=== PATIENT | female | born 1960 | race Caucasian/White ===

== ENCOUNTER → 2016-10-11 | Outpatient (CLI) | payer OTHER ==
[~2016-10-11] MED LIST: B-COCAP9 PO; BUTA1CAP10 PO; CHOL50006 PO; DHEA25CA PO; FLUD.1 PO; FOLI400T PO; HYDR10TA65 PO; HYDR5TAB64 PO; IMIT50TA PO; LEVO.15 PO; MULTTAB67 PO; REGL10TA5 PO; SELE100T PO; SYNT112T PO; VITA10002 PO
[2016-10-11 13:30] LABS: ALT (GPT) 25 U/L (10-53); ANION GAP 10 MEQ/L (5-15); AST (GOT) 21 U/L (15-37); BICARBONATE 25.5 MEQ/L (21.0-32.0); BLOOD UREA NITROGEN 18 MG/DL (7-18); CHLORIDE 98 MEQ/L (98-107); GLOMERULAR FILTRATION RATE 54 ML/MIN (>89); POTASSIUM 4.2 MEQ/L (3.5-5.1); SODIUM (NA) 133 MEQ/L (136-145)
[2016-10-11 13:40] LABS: ALKALINE PHOSPHATASE 96 U/L (45-117); FREE T4 1.33 NG/DL (0.76-1.46); TOTAL BILIRUBIN ADULT 0.4 MG/DL (0.2-1.0)
== END ==
LOC: PLAB 11:28
PROVIDERS: ATTEND Internal Medicine Endocrinology, Diabetes & Metabolism
DX: E03.9 Hypothyroidism, unspecified (principal); E55.9 Vitamin D deficiency, unspecified; E27.1 Primary adrenocortical insufficiency
CPT/HCPCS: 80053; 82024; 82306; 84439; 84443

== ENCOUNTER 2016-10-23 13:52 | Emergency (ER) | payer OTHER ==
[~2016-10-23] VITALS: Ht 167.6 cm; Wt 80.0 kg
[~2016-10-23 13:52] MED LIST changes: -B-COCAP9 PO; -BUTA1CAP10 PO; -CHOL50006 PO; -DHEA25CA PO; -FOLI400T PO; -HYDR5TAB64 PO; -IMIT50TA PO; -MULTTAB67 PO; -REGL10TA5 PO; -SELE100T PO; -SYNT112T PO; -VITA10002 PO
[2016-10-23 13:55] VITALS: BP 150/87; PULSE 98; RESP 16; TEMP 97.8; O2SAT 98
[2016-10-23] MEDS ORDERED: HYDR10TA65 PO (14:13)
[2016-10-23] MEDS ORDERED: SYNT112T PO (14:13)
[2016-10-23] MEDS ORDERED: FLUD.1 PO (14:13)
[2016-10-23] MEDS ORDERED: HYDR5TAB64 PO (14:13)
[2016-10-23] MEDS ORDERED: SODIUM CHLOR 0.9% 1000 ML INJ 1,000 ML IV SCH (14:43)
--- NOTE | 2016-10-23 14:44 | PD ---
HPI Chief Complaint: GI Complaint Time Seen by Provider: 14:44 Travel History International Travel<30 days: No Contact w/Intl Traveler<30days: No Traveled to known affect area: No History of Present Illness HPI 56-year-old female with a history of Deandra's disease, pernicious anemia and Paul's hypothyroidism presents to the emergency department for evaluation of nausea and left lower quadrant abdominal pain. The patient states that she has had nausea for the past 10 days without vomiting. States that she thought her symptoms may be diverticulitis that she has a history of this in the past and 5 days ago she was seen at an urgent care and given a prescription for Flagyl which she has been taking. States that over the past 4 days she has had some intermittent left lower quadrant tenderness cramping pains. States that her nausea has persisted and she is unsure if she is having this nausea from diverticulitis or from her [place]'s. She denies any fever, chills, vomiting, diarrhea, constipation, bloody stool, chest pain, shortness of breath, cough or cold symptoms. Denies any prior abdominal surgeries. No other complaints. PFSH Past Medical History Arthritis: Yes Asthma: Yes (EXERCISE INDUCED) Autoimmune Disease: Yes (HASHIMOTOS, DEANDRA'S, pernicious anemia) Cancer: No Cardiovascular Problems: Yes High Cholesterol: No Diminished Hearing: No Diverticulitis: Yes Endocrine: No Genitourinary: No Hypertension: Yes Implanted Vascular Access Dvce: No Musculoskeletal: Yes Neurologic: Yes Reproductive: No Respiratory: Yes Migraines: Yes Thyroid Disease: Yes (HYPOTHYROID) Tetanus Vaccination: < 5 Years Menopausal: Yes : 5 Para: 4 Miscarriage: 1 Past Surgical History Body Medical Devices: NEUTROPENIA Oral Surgery: Yes (WISDOM TEETH) Pacemaker: No Tonsillectomy: Yes (1966) Other Surgery: Yes (1979--R.BREAST LUMPECTOMY) Social History Alcohol Use: No Tobacco Use: No Substance Use: No Allergies-Medications (Allergen,Severity, Reaction): Coded Allergies: Penicillin (Verified Allergy, Severe, HIVES, 10/23/16) Sulfa (Verified Allergy, Severe, SWELLING, 10/23/16) Reported Meds & Prescriptions Reported Meds & Active Scripts Active Reported Fludrocortisone (Fludrocortisone Acetate) 0.1 Mg Tab 0.1 Mg PO DAILY Hydrocortisone 5 Mg Tab 2.5 Mg PO DAILY Take with food to decrease GI upset Hydrocortisone 5 Mg Tab 2.5 Mg PO DAILY Take with food to decrease GI upset Hydrocortisone 10 Mg Tab 10 Mg PO DAILY Take with food to decrease GI upset Synthroid (Levothyroxine Sodium) 112 Mcg Tab 112 Mcg PO DAILY Review of Systems Except as stated in HPI: all other systems reviewed are Neg Physical Exam Narrative GENERAL: Well-nourished and well-developed pleasant female patient in no acute distress who is nontoxic appearing. SKIN: Warm and dry. HEAD: Normocephalic and atraumatic. EYES: No injection, drainage, or hyphema noted. PERRLA. EOMI. ENT: No nasal drainage noted. Oropharynx is clear. NECK: Supple and the trachea is midline. CARDIOVASCULAR: Regular rate and rhythm. RESPIRATORY: Breath sounds are equal bilaterally with no accessory muscle use, wheezing, rhonchi, or crackles. GASTROINTESTINAL: Mild left lower quadrant tenderness to palpation. Abdomen is soft and nondistended. No rebound tenderness or guarding. Negative McBurney 's point. Negative Calero's sign. MUSCULOSKELETAL: No obvious deformities, swelling, cyanosis, or ecchymosis is present throughout the upper and lower extremities. Patient has full range of motion without any signs of neurovascular compromise. NEUROLOGICAL: Awake, alert, and oriented. Normal speech and gait. Cranial nerves are grossly intact. Data Data Last Documented VS Vital Signs Date Time Temp Pulse Resp B/P Pulse Ox O2 Delivery O2 Flow Rate FiO2 10/23/16 15:36 99 10/23/16 13:55 97.8 98 16 150/87 Room Air Orders Complete Blood Count With Diff (10/23/16 14:43) Comprehensive Metabolic Panel (10/23/16 14:43) Lipase (10/23/16 14:43) Urinalysis - C+S If Indicated (10/23/16 14:43) Ct Abd/Pel W Iv Contrast(Rout) (10/23/16 14:43) Iv Access Insert/Monitor (10/23/16 14:43) Ecg Monitoring (10/23/16 14:43) Oximetry (10/23/16 14:43) Ondansetron Inj (Zofran Inj) (10/23/16 14:45) Sodium Chlor 0.9% 1000 Ml Inj (Ns 1000 M (10/23/16 14:43) Sodium Chloride 0.9% Flush (Ns Flush) (10/23/16 14:45) Iohexol 350 Inj (Omnipaque 350 Inj) (10/23/16 17:14) Labs Laboratory Tests Test 10/23/16 14:55 White Blood Count 4.9 TH/MM3 Red Blood Count 4.68 MIL/MM3 Hemoglobin 14.2 GM/DL Hematocrit 40.6 % Mean Corpuscular Volume 86.9 FL Mean Corpuscular Hemoglobin 30.3 PG Mean Corpuscular Hemoglobin 34.9 % Concent Red Cell Distribution Width 13.0 % Platelet Count 320 TH/MM3 Mean Platelet Volume 8.8 FL Neutrophils (%) (Auto) 55.4 % Lymphocytes (%) (Auto) 35.5 % Monocytes (%) (Auto) 7.7 % Eosinophils (%) (Auto) 0.7 % Basophils (%) (Auto) 0.7 % Neutrophils # (Auto) 2.7 TH/MM3 Lymphocytes # (Auto) 1.7 TH/MM3 Monocytes # (Auto) 0.4 TH/MM3 Eosinophils # (Auto) 0.0 TH/MM3 Basophils # (Auto) 0.0 TH/MM3 CBC Comment DIFF FINAL Differential Comment Urine Color YELLOW Urine Turbidity CLEAR Urine pH 5.0 Urine Specific [place] 1.007 Urine Protein NEG mg/dL Urine Glucose (UA) NEG mg/dL Urine Ketones NEG mg/dL Urine Occult Blood NEG Urine Nitrite NEG Urine Bilirubin NEG Urine Urobilinogen LESS THAN 2.0 MG/DL Urine Leukocyte Esterase NEG Urine WBC LESS THAN 1 /hpf Microscopic Urinalysis Comment CULT NOT INDICATED Sodium Level 131 MEQ/L Potassium Level 4.0 MEQ/L Chloride Level 97 MEQ/L Carbon Dioxide Level 24.3 MEQ/L Anion Gap 10 MEQ/L Blood Urea Nitrogen 13 MG/DL Creatinine 0.99 MG/DL Estimat Glomerular Filtration 58 ML/MIN Rate Random Glucose 106 MG/DL Calcium Level 9.7 MG/DL Total Bilirubin 0.5 MG/DL Aspartate Amino Transf 47 U/L (AST/SGOT) Alanine Aminotransferase 37 U/L (ALT/SGPT) Alkaline Phosphatase 82 U/L Total Protein 7.5 GM/DL Albumin 4.3 GM/DL Lipase 156 U/L [facility] Medical Decision Making Medical Screen Exam Complete: Yes Emergency Medical Condition: Yes Differential Diagnosis Diverticulitis versus colitis versus pancreatitis versus PUD versus Deandra's Narrative Course 56-year-old female presents to the emergency department for evaluation of nausea and left lower quadrant abdominal pain. Patient is afebrile, vital signs are stable. On physical examination she does have some left lower quadrant tenderness to palpation, no peritoneal signs. IV access is obtained, labs drawn and sent. CT of the abdomen and pelvis with IV contrast has been ordered and is pending. CBC is unremarkable. CMP shows slightly decreased sodium of 131, otherwise unremarkable. Lipase is normal. Urinalysis is unremarkable. CT of the abdomen and pelvis with IV contrast is negative for any Abnormalities. Labs are all reassuring and CT is negative. Discussed all results with the patient. We'll give her Reglan for nausea. Advised follow-up with her PCP. Patient verbalizes understanding and agreement with treatment plan. I discussed the case with my attending physician Dr. Harvey who is aware of the patients history, physical examination findings, and treatment plan. Diagnosis Primary Impression: Nausea Additional Impression: Abdominal pain Qualified Code: R10.32 - Left lower quadrant pain Referrals: Primary Care Physician Patient Instructions: General Instructions Additional Instructions: Take medications as prescribed. Follow-up with your Primary Care Physician. Return to the ED for any acute worsening of symptoms. Med/Other Pt SpecificInfo: Prescription(s) given Scripts Metoclopramide (Reglan)10 Mg Tab10 Mg PO TIDAC PRN (NAUSEA OR VOMITING) 5 Days Ref 0 Prov:Andi Harvey MD 10/23/16 Disposition: 01 DISCHARGE HOME Condition: Stable Eloisa Mcmullen Oct 23, 2016 14:44
[2016-10-23] MEDS ORDERED: ONDANSETRON HCL 4 MG/2 ML VIAL IVP ONE (14:45)
[2016-10-23] MEDS ORDERED: SODIUM CHLORIDE 0.9% FLUSH 5 ML FLUSH IVF PRN (14:45)
[2016-10-23 15:13] LABS: AUTOMATED NEUTROPHIL # 2.7 TH/MM3 (1.8-7.7); BASOPHIL % 0.7 % (0.0-2.0); EOSINOPHIL % 0.7 % (0.0-4.0); HEMATOCRIT 40.6 % (35.0-46.0); HEMO FLAGS DIFF FINAL; LYMPH % 35.5 % (9.0-44.0); LYMPHOCYTE # 1.7 TH/MM3 (1.0-4.8); MEAN CELL VOLUME 86.9 FL (80.0-100.0); MEAN CORPUSCULAR HEMOGLOBIN 30.3 PG (27.0-34.0); MEAN CORPUSCULAR HGB CONC 34.9 % (32.0-36.0); MONO % 7.7 % (0.0-8.0); NEUT % 55.4 % (16.0-70.0); PLATELET COUNT 320 TH/MM3 (150-450); RED BLOOD COUNT 4.68 MIL/MM3 (4.00-5.30); WHITE BLOOD COUNT 4.9 TH/MM3 (4.0-11.0)
[2016-10-23 15:36] VITALS: O2SAT 99
[2016-10-23 15:36] LABS: BLOOD, URINE NEG (NEG); COMMENT (UR) CULT NOT INDICATED; CULTURE IF INDICATED CULT NOT INDICATED; GLUCOSE,URINE NEG (NEG); KETONE, URINE NEG (NEG); NITRITE,URINE NEG (NEG); URINE COLOR YELLOW (YELLW/STRAW)
[2016-10-23 15:38] LABS: ALKALINE PHOSPHATASE 82 U/L (45-117); ALT (GPT) 37 U/L (10-53); ANION GAP 10 MEQ/L (5-15); AST (GOT) 47 U/L (15-37); BICARBONATE 24.3 MEQ/L (21.0-32.0); BLOOD UREA NITROGEN 13 MG/DL (7-18); CHLORIDE 97 MEQ/L (98-107); GLOMERULAR FILTRATION RATE 58 ML/MIN (>89); SODIUM (NA) 131 MEQ/L (136-145); TOTAL BILIRUBIN ADULT 0.5 MG/DL (0.2-1.0)
[2016-10-23] MEDS ORDERED: IOHEXOL 350 MG/ML 10 ML VIAL (for RAD DIAG) IV ONE (17:14)
--- NOTE | 2016-10-23 18:12 | RADRPT ---
EXAM DATE/TIME: 10/23/2016 17:11 [place] COMPARISON: No previous studies available for comparison. INDICATIONS : Nausea X 10 days; patient taking medication for diverticulitis. IV CONTRAST: 96 cc Omnipaque 350 (iohexol) IV ORAL CONTRAST: No oral contrast ingested. RADIATION DOSE: 14.32 CTDIvol (mGy) MEDICAL HISTORY : Cardiovascular disease. Hypertension. Anemia, Addisons, Hashimotos disease SURGICAL HISTORY : None. ENCOUNTER: Initial ACUITY: 1 week PAIN SCALE: 6/10 LOCATION: abdomen TECHNIQUE: Volumetric scanning of the abdomen and pelvis was performed. Using automated exposure control and ad justment of the mA and/or kV according to patient size, radiation dose was kept as low as reasonably achievable to obtain optimal diagnostic quality images. FINDINGS: LOWER LUNGS: The visualized lower lungs are clear. LIVER: Homogeneous density without lesion. There is no dilation of the biliary tree. No calcified gallston es. SPLEEN: Normal size without lesion. PANCREAS: Within normal limits. KIDNEYS: Normal in size and shape. There is no mass, stone or hydronephrosis. ADRENAL GLANDS: Within normal limits. VASCULAR: There is no aortic aneurysm. BOWEL/MESENTERY: No dilated loops of small or large bowel. The appendix is retrocecal and has a normal configuration. There are a few scattered diverticula in the sigmoid colon without radiographic evidence of diverti culitis. No evidence of free fluid. ABDOMINAL WALL: Within normal limits. RETROPERITONEUM: There are a few lymph nodes in the right lower quadrant medial to the cecum and anterior to the right psoas that measure up to 11 mm in size. These are nonspecific by size criteria. BLADDER: No wall thickening or mass. REPRODUCTIVE: The uterus and adnexal regions are unremarkable. INGUINAL: There is no lymphadenopathy or hernia. MUSCULOSKELETAL: Within normal limits for patient age. CONCLUSION: Scattered diverticula in the sigmoid colon without radiographic evidence of diverticulitis. Otherwis e negative exam. Heron Basilio MD on October 23, 2016 at 18:07 Board Certified Radiologist. This report was verified electronically.
[2016-10-23] MEDS ORDERED: REGL10TA5 PO (18:21)
[2016-12-27] MEDS ORDERED: B-COCAP9 PO (15:56)
[2016-12-27] MEDS ORDERED: VITA10002 PO (15:56)
[2016-12-27] MEDS ORDERED: BUTA1CAP10 PO (15:56)
[2016-12-27] MEDS ORDERED: MULTTAB67 PO (15:56)
[2016-12-27] MEDS ORDERED: SELE100T PO (15:56)
[2016-12-27] MEDS ORDERED: DHEA25CA PO (15:56)
[2016-12-27] MEDS ORDERED: FOLI400T PO (15:56)
[2016-12-27] MEDS ORDERED: IMIT50TA PO (15:56)
[2016-12-27] MEDS ORDERED: CHOL50006 PO (15:56)
== END 2016-10-23 18:50 | disposition home or self-care (01) ==
LOC: NEPE 13:52
DX: R11.0 Nausea (principal); R10.32 Left lower quadrant pain; J45.909 Unspecified asthma, uncomplicated; I10 Essential (primary) hypertension; E27.1 Primary adrenocortical insufficiency; D64.9 Anemia, unspecified; E06.3 Autoimmune thyroiditis
CPT/HCPCS: 74177; 80053; 81001; 83690; 85025; 96361; 96374; 99284; J2405; J7030; Q9967

== ENCOUNTER → 2016-11-03 | Outpatient (CLI) | payer OTHER ==
[~2016-11-03] MED LIST changes: +B-COCAP9 PO; +BUTA1CAP10 PO; +CHOL50006 PO; +DHEA25CA PO; +FOLI400T PO; +HYDR5TAB64 PO; +IMIT50TA PO; -LEVO.15 PO; +MULTTAB67 PO; +REGL10TA5 PO; +SELE100T PO; +SYNT112T PO; +VITA10002 PO
[2016-11-03 11:36] LABS: BICARBONATE 21.9 MEQ/L (21.0-32.0); POTASSIUM 4.1 MEQ/L (3.5-5.1)
== END ==
LOC: CLAB 10:44
PROVIDERS: ATTEND Family Medicine
DX: R11.0 Nausea (principal)
CPT/HCPCS: 36415; 80048

== ENCOUNTER → 2016-12-28 | Outpatient (CLI) | payer OTHER ==
[~2016-12-28] MED LIST changes: +CHLORHEXIDINE GLUCONATE 2 % 1 PACK (2 CLOTHS) TOPICAL PRN; +HYDROCORTISONE SOD SUCCINATE 100 MG VIAL IV ONE; +INSULIN HUMAN REGULAR 1,000 UNITS/10 ML VIAL SQ PRN; +LACTATED RINGER'S 1000 ML IV PRN; +METOPROLOL TARTRATE 25 MG TAB PO PRN; +POVIDONE IODINE 5% (ANTISEPSIS KIT) 4 APPLICATIONS EACH NARE PRN; +PROPOFOL 200 MG/20 ML AMP IV ONE; -REGL10TA5 PO; +SODIUM CHLORID 0.9% 500 ML IV PRN
[2016-12-28 10:50] VITALS: BP 124/81; PULSE 83; RESP 18; TEMP 98.1; O2SAT 99
[2016-12-28 11:55] VITALS: TEMP 97.5
--- NOTE | 2016-12-28 12:04 | GIPROC ---
[facility] [address] [facility]. [facility], [address] FLEXIBLE SIGMOIDOSCOPY PROCEDURE REPORT EXAM DATE: 12/28/2016 PATIENT NAME: Akanksha Biswas MR #: [id number] BIRTHDATE: 1960 ORDER #: [id number] ATTENDING: Osbaldo Merritt MD FIELD LOGISTICS COORDINATOR: Jovani Wheeler and Spring Ernandez STATUS: outpatient INDICATIONS: The patient is a 56 yr old female here for a flexible sigmoidoscopy with possible colonoscopy due to abdominal pain in the left lower quadrant, average risk patient for colon cancer, and an abnormal CT with lymphadenopathy RLQ. PROCEDURE PERFORMED: Colonoscopy, diagnostic MEDICATIONS: Per Anesthesia and Solucortef 100mg IV prior to procedure ESTIMATED BLOOD LOSS: None CONSENT: The patient understands the risks and benefits of the procedure and understands that these risks include, but are not limited to: sedation, allergic reaction, infection, perforation and/or bleeding. Alternative means of evaluation and treatment include, among others: physical exam, x-rays, and/or surgical intervention. The patient elects to proceed with this endoscopic procedure. medical equipment was checked for proper function. Hand hygiene and appropriate measures for infection prevention was taken. After the risks, benefits and alternatives of the procedure were thoroughly explained, Informed consent was verified, confirmed and timeout was successfully executed by the treatment team. A digital rectal exam revealed no abnormalities of the rectum The Pentax [id number] endoscope was introduced through the anus and advanced to the cecum and TI . The prep was good. The instrument was then slowly withdrawn as the colon was fully examined. COLON FINDINGS: There was mild diverticulosis noted in the sigmoid colon. Retroflexed views revealed no abnormalities The scope was then completely withdrawn from the patient and the procedure terminated. Withdrawal time=8 minutes. ADVERSE EVENTS: There were no complications. IMPRESSIONS: 1. Retroflexed views revealed no abnormalities 2. Revealed no abnormalities of the rectum 3. Diverticulosis RECOMMENDATIONS: Follow up office 2 weeks RECALL: Return 10 years Colonoscopy Osbaldo Merritt MD eSigned: Osbaldo Merritt MD 12/28/2016 12:04 PM cc: Jorden Jean M.D. PATIENT NAME: Akanksha Biswas Jl MR#: [id number]
[2016-12-28 12:15] VITALS: BP 118/79; PULSE 85; RESP 16; O2SAT 100
== END ==
LOC: HEND 09:39
PROVIDERS: ATTEND Internal Medicine Gastroenterology
DX: K57.30 Diverticulosis of large intestine without perforation or abscess without bleeding (principal); R93.8 Abnormal findings on diagnostic imaging of other specified body structures; R59.1 Generalized enlarged lymph nodes
CPT/HCPCS: 00810; 45378; J1720; J7120

== ENCOUNTER → 2017-04-05 | Outpatient (CLI) | payer OTHER ==
[~2017-04-05] MED LIST changes: -CHLORHEXIDINE GLUCONATE 2 % 1 PACK (2 CLOTHS) TOPICAL PRN; -HYDROCORTISONE SOD SUCCINATE 100 MG VIAL IV ONE; -INSULIN HUMAN REGULAR 1,000 UNITS/10 ML VIAL SQ PRN; -LACTATED RINGER'S 1000 ML IV PRN; -METOPROLOL TARTRATE 25 MG TAB PO PRN; -POVIDONE IODINE 5% (ANTISEPSIS KIT) 4 APPLICATIONS EACH NARE PRN; -PROPOFOL 200 MG/20 ML AMP IV ONE; -SODIUM CHLORID 0.9% 500 ML IV PRN
[2017-04-05 08:59] LABS: ALT (GPT) 34 U/L (10-53); ANION GAP 8 MEQ/L (5-15); AST (GOT) 34 U/L (15-37); BICARBONATE 26.3 MEQ/L (21.0-32.0); BLOOD UREA NITROGEN 19 MG/DL (7-18); CHLORIDE 100 MEQ/L (98-107); GLOMERULAR FILTRATION RATE 79 ML/MIN (>89); GLUCOSE,FASTING 87 MG/DL (74-99); POTASSIUM 3.7 MEQ/L (3.5-5.1); SODIUM (NA) 134 MEQ/L (136-145)
[2017-04-05 09:10] LABS: ALKALINE PHOSPHATASE 103 U/L (45-117); FREE T4 1.09 NG/DL (0.76-1.46); TOTAL BILIRUBIN ADULT 0.3 MG/DL (0.2-1.0)
== END ==
LOC: CLAB 08:12
PROVIDERS: ATTEND Internal Medicine Endocrinology, Diabetes & Metabolism
DX: E03.9 Hypothyroidism, unspecified (principal); E27.1 Primary adrenocortical insufficiency
CPT/HCPCS: 36415; 80053; 82024; 84439; 84443

== ENCOUNTER → 2017-08-03 | Outpatient (CLI) | payer OTHER ==
[2017-08-03 11:32] LABS: ANION GAP 12 MEQ/L (5-15); AST (GOT) 23 U/L (15-37); BICARBONATE 20.3 MEQ/L (21.0-32.0); BLOOD UREA NITROGEN 19 MG/DL (7-18); CHLORIDE 98 MEQ/L (98-107); GLOMERULAR FILTRATION RATE 65 ML/MIN (>89); GLUCOSE,FASTING 110 MG/DL (74-99); POTASSIUM 4.2 MEQ/L (3.5-5.1); SODIUM (NA) 130 MEQ/L (136-145)
[2017-08-03 11:59] LABS: ALKALINE PHOSPHATASE 96 U/L (45-117); ALT (GPT) 32 U/L (10-53); FREE T4 1.26 NG/DL (0.76-1.46); TOTAL BILIRUBIN ADULT 0.4 MG/DL (0.2-1.0)
== END ==
LOC: CLAB 10:47
PROVIDERS: ATTEND Internal Medicine Endocrinology, Diabetes & Metabolism
DX: E27.1 Primary adrenocortical insufficiency (principal); E03.9 Hypothyroidism, unspecified; D51.0 Vitamin B12 deficiency anemia due to intrinsic factor deficiency; E31.0 Autoimmune polyglandular failure
CPT/HCPCS: 36415; 80053; 82024; 82306; 82607; 84439; 84443

== ENCOUNTER 2017-11-10 05:34 | Emergency (ER) | payer OTHER ==
[~2017-11-10] VITALS: Ht 167.6 cm; Wt 86.0 kg
[2017-11-10 05:35] VITALS: BP 160/93; PULSE 97; RESP 16; TEMP 97.9; O2SAT 100
[2017-11-10] MEDS ORDERED: ALBU6.7H INH (05:58)
[2017-11-10] MEDS ORDERED: CEFU1TAB18 PO (05:58)
--- NOTE | 2017-11-10 06:04 | PD ---
HPI Chief Complaint: Cold / Flu Symptoms Time Seen by Provider: 05:47 Travel History International Travel<30 days: No Contact w/Intl Traveler<30days: No Traveled to known affect area: No History of Present Illness HPI 57-year-old white female presents to emergency department with complaints of cough, congestion, shortness of breath and some wheezing. She states that she' s been sick since Monday. She was seen at an urgent care on Monday and started on Keflex. She has had persistent worsening symptoms. She also has had some fever and chills, earache or sore throat. She denies any nausea vomiting. No abdominal pain or diarrhea. No dysuria frequency. She states that she has [place]'s disease. She has had not increased her steroids as of yet. She also states that she was given an inhaler in the past but it has . She would like to get a new inhaler, and change her antibiotics from Keflex to Ceftin. Patient had a negative flu test on Monday. PFSH Past Medical History Arthritis: Yes Asthma: Yes (EXERCISE INDUCED) Autoimmune Disease: Yes (HASHIMOTOS, DEANDRA'S, pernicious anemia) Cancer: No Cardiovascular Problems: Yes (LOW SODIUM AT TIMES) High Cholesterol: No Diabetes: No Diminished Hearing: No Diverticulitis: Yes Endocrine: No Gastrointestinal Disorders: Yes (LOWER LEFT ABDOMINAL PAIN) Genitourinary: No Hepatitis: No Hiatal Hernia: No Hypertension: Yes Implanted Vascular Access Dvce: No Medical other: Yes (ADRENAL FAILURE) Musculoskeletal: No Neurologic: No Psychiatric: No Reproductive: No Respiratory: Yes (Bronchitis) Migraines: Yes Thyroid Disease: Yes (HYPOTHYROID) Tetanus Vaccination: < 5 Years Influenza Vaccination: Yes ?: Not Menopausal: Yes : 5 Para: 4 Miscarriage: 1 Past Surgical History Abdominal Surgery: No AICD: No Body Medical Devices: PLATES AND SCREWS LLE Cardiac Surgery: No Ear Surgery: No Endocrine Surgery: No Eye Surgery: No Genitourinary Surgery: No Gynecologic Surgery: No Joint Replacement: No Oral Surgery: Yes (WISDOM TEETH, TONSILLECTOMY) Pacemaker: No Thoracic Surgery: No Tonsillectomy: Yes (1966) Other Surgery: Yes (1979--R.BREAST LUMPECTOMY) Social History Alcohol Use: No Tobacco Use: No Substance Use: No Allergies-Medications (Allergen,Severity, Reaction): Coded Allergies: penicillin G (Unverified Allergy, Severe, HIVES, 11/10/17) Reported Meds & Prescriptions Reported Meds & Active Scripts Active Ceftin (Cefuroxime Axetil) 250 Mg Tab 250 Mg PO BID 10 Days Proventil Hfa 6.7 GM Inh (Albuterol Sulfate) 90 Mcg/Act Aer 2 Puff INH Q4-6H PRN Reported Esgic (Nahfzsjuql-Jsbjzktlsficb-Irahqjbo) 50-325-40 Mg Cap 1 Cap PO Q4H PRN Do not exceed 6 capsules/day. Selenium 100 Mcg Tab 100 Mg PO DAILY Vitamin D (Cholecalciferol) 5,000 Unit Tab 5,000 Units PO DAILY Dhea (Prasterone (DHEA)) 25 Mg Cap 25 Mg PO WEEKLY Folic Acid 400 Mcg Tab 400 Mcg PO DAILY Super B-Complex (B-Complex W/Biotin & Folic Acid) 1 Cap 1 Cap PO DAILY Vitamin B-12 (Cyanocobalamin) 1,000 Mcg Tab 1,000 Mcg PO DAILY Multiple Vitamin 1 Tab 1 Tab PO DAILY Imitrex (Sumatriptan Succinate) 50 Mg Tab 50 Mg PO ONCE PRN If a satisfactory response has not been obtained at 2 hours, a second dose may be administered Fludrocortisone (Fludrocortisone Acetate) 0.1 Mg Tab 0.1 Mg PO DAILY Hydrocortisone 5 Mg Tab 5 Mg PO DAILY Take with food to decrease GI upset Hydrocortisone 5 Mg Tab 5 Mg PO DAILY Take with food to decrease GI upset Hydrocortisone 10 Mg Tab 15 Mg PO DAILY Take with food to decrease GI upset Synthroid (Levothyroxine Sodium) 112 Mcg Tab 112 Mcg PO DAILY Review of Systems Except as stated in HPI: all other systems reviewed are Neg Physical Exam Narrative GENERAL: Well-developed, well-nourished in no acute distress. Nontoxic appearing. HEAD: Normocephalic, atraumatic. EYES: Pupils equal round and reactive. Extraocular motions intact. No scleral icterus. No injection or drainage. ENT: TMs clear without erythema. The external auditory canals clear. Nose: clear . Posterior pharynx is pink and moist. No tonsillar edema or exudate. Uvula midline. Airway patent. NECK: Trachea midline.Supple, nontender, moves head freely. No central bony tenderness or spasm. CARDIOVASCULAR: Regular rate and rhythm without murmurs, gallops, or rubs. RESPIRATORY: Few rhonchi with fine forced expiratory wheeze. No Rales. GASTROINTESTINAL: Abdomen soft, non-tender, nondistended. No hepato-splenomegaly , or palpable masses. No guarding. EXTREMITIES: No clubbing, cyanosis, or edema. No joint tenderness, effusion, or edema noted. BACK: Nontender without deformity or crepitance. No flank tenderness. Data Data Last Documented VS Vital Signs Date Time Temp Pulse Resp B/P (MAP) Pulse Ox O2 Delivery O2 Flow Rate FiO2 11/10/17 05:35 97.9 97 16 160/93 (115) 100 Room Air Orders Orders Ed Discharge Order (11/10/17 05:57) MDM Medical Decision Making Medical Screen Exam Complete: Yes Emergency Medical Condition: Yes Medical Record Reviewed: Yes Differential Diagnosis MDM: High Differential diagnoses: Pneumonia, bronchitis, URI, asthma, RAD, legionnaire's disease, SARS, ARDS, influenza, bronchiolitis, RSV,PE,CHF Narrative Course I explain to the patient that her symptoms are most likely viral etiology. Her biggest concern is that she should have an increase of her steroids. I've advised her to triple her stories for the next 5 days. I've also gone ahead and refilled her inhaler. I have agreed to change her antibiotic from Keflex to Ceftin. This is bronchitis, reactive airway disease, [place]'s Diagnosis Primary Impression: bronchitis Additional Impressions: reactive airway disease Deandra's Patient Instructions: General Instructions Departure Forms: Tests/Procedures, Work Release Special Instructions: No work 3 days. Additional Instructions: Rest. Increase fluids. Tylenol and Advil. Robitussin-DM. Ceftin, prednisone, and albuterol. Followup with your DrMahi in one week. Return to the ER for any problems. Med/Other Pt SpecificInfo: Prescription(s) given Scripts Cefuroxime (Ceftin) 250 Mg Tab 250 MG PO BID for 10 Days, #20 TAB Prov: Nick Rodriguez MD 11/10/17 Albuterol 6.7 GM Inh (Proventil Hfa 6.7 GM Inh) 90 Mcg/Act Aer 2 PUFF INH Q4-6H Y for SHORTNESS OF BREATH, #1 INHALER 0 Refills Prov: Nick Rodriguez MD 11/10/17 Disposition: 01 DISCHARGE HOME Condition: Stable Kenneth Webber Nov 10, 2017 06:04
== END 2017-11-10 06:15 | disposition home or self-care (01) ==
LOC: NEPD 05:34
DX: J40 Bronchitis, not specified as acute or chronic (principal); D51.0 Vitamin B12 deficiency anemia due to intrinsic factor deficiency; M19.90 Unspecified osteoarthritis, unspecified site; I10 Essential (primary) hypertension; E03.9 Hypothyroidism, unspecified
CPT/HCPCS: 99283

== ENCOUNTER → 2018-01-05 | Outpatient (CLI) | payer OTHER ==
[~2018-01-05] MED LIST changes: +ALBU6.7H INH; +CEFU1TAB18 PO
[2018-01-05 13:33] LABS: ALBUMIN 3.8 GM/DL (3.4-5.0); AST (GOT) 24 U/L (15-37); BICARBONATE 24.8 MEQ/L (21.0-32.0); BLOOD UREA NITROGEN 13 MG/DL (7-18); CALCIUM 8.9 MG/DL (8.5-10.1); CHLORIDE 99 MEQ/L (98-107); CREATININE 0.95 MG/DL (0.50-1.00); GLOMERULAR FILTRATION RATE 60 ML/MIN (>89); GLUCOSE,RANDOM 78 MG/DL (74-106); SODIUM (NA) 132 MEQ/L (136-145)
[2018-01-05 13:34] LABS: ALT (GPT) 29 U/L (10-53)
[2018-01-05 14:00] LABS: ALKALINE PHOSPHATASE 87 U/L (45-117); FREE T4 1.23 NG/DL (0.76-1.46); TOTAL BILIRUBIN ADULT 0.2 MG/DL (0.2-1.0); TOTAL PROTEIN 7.3 GM/DL (6.4-8.2)
== END ==
LOC: PLAB 11:33
PROVIDERS: ATTEND Internal Medicine Endocrinology, Diabetes & Metabolism
DX: E03.9 Hypothyroidism, unspecified (principal); E55.9 Vitamin D deficiency, unspecified; E27.1 Primary adrenocortical insufficiency; D51.0 Vitamin B12 deficiency anemia due to intrinsic factor deficiency
CPT/HCPCS: 36415; 80053; 82024; 82306; 82607; 84439; 84443

== ENCOUNTER → 2018-03-19 | Outpatient (CLI) | payer OTHER ==
[2018-03-19 14:02] LABS: AUTOMATED NEUTROPHIL # 3.9 TH/MM3 (1.8-7.7); BASOPHIL % 0.7 % (0.0-2.0); EOSINOPHIL % 0.1 % (0.0-4.0); HEMATOCRIT 42.3 % (35.0-46.0); HEMOGLOBIN 14.3 GM/DL (11.6-15.3); LYMPH % 32.6 % (9.0-44.0); LYMPHOCYTE # 2.2 TH/MM3 (1.0-4.8); MEAN CELL VOLUME 89.7 FL (80.0-100.0); MEAN CORPUSCULAR HEMOGLOBIN 30.4 PG (27.0-34.0); MEAN CORPUSCULAR HGB CONC 33.9 % (32.0-36.0); MEAN PLATELET VOLUME 8.5 FL (7.0-11.0); MONO % 7.7 % (0.0-8.0); MONOCYTE # 0.5 TH/MM3 (0-0.9); NEUT % 58.9 % (16.0-70.0); PLATELET COUNT 356 TH/MM3 (150-450); RED BLOOD COUNT 4.72 MIL/MM3 (4.00-5.30); RED CELL DISTRIBUTION WIDTH 13.2 % (11.6-17.2); WHITE BLOOD COUNT 6.7 TH/MM3 (4.0-11.0)
[2018-03-19 14:11] LABS: BILIRUBIN, URINE NEG (NEG); BLOOD, URINE NEG (NEG); GLUCOSE,URINE NEG (NEG); KETONE, URINE NEG (NEG); MUCUS URINE FEW /lpf (OCC); NITRITE,URINE NEG (NEG); URINE COLOR Straw (YELLW/STRAW); URINE LEUKOCYTE ESTERASE NEG (NEG)
[2018-03-19 14:30] LABS: ALBUMIN 4.3 GM/DL (3.4-5.0); BICARBONATE 22.2 MEQ/L (21.0-32.0); CALCIUM 9.1 MG/DL (8.5-10.1); CREATININE 0.81 MG/DL (0.50-1.00)
[2018-03-19 14:33] LABS: COMPLEMENT C4 26 MG/DL (10-40)
[2018-03-19 14:43] LABS: KAPPA LAMBDA RATIO 1.66 (1.57-3.93); TOTAL PROTEIN 7.8 GM/DL (6.4-8.2)
[2018-03-20 04:24] LABS: TOTAL COMPLEMENT (CH50) 74 U/mL (30 - 75)
== END ==
LOC: CLAB 13:19
PROVIDERS: ATTEND Physician Assistant
DX: N18.2 Chronic kidney disease, stage 2 (mild) (principal)
CPT/HCPCS: 36415; 80069; 81001; 82570; 82784; 83883; 83970; 84155; 84156; 84165; 85025; 86021; 86160; 86162; 86334; 86335; 86803; 87205